=== PATIENT | male | born 1985 | race Two or more races ===

== ENCOUNTER 2018-06-19 07:56 | Emergency (ER) | payer MEDICAID ==
[~2018-06-19] VITALS: Ht 180.3 cm; Wt 72.6 kg
[~2018-06-19 07:56] MED LIST: BACTRIM-DS1 EA ORAL; CEPHALEXIN500 MG ORAL; HYDROCODON-ACE1 EAC4 ORAL; IBUPROFEN600 MG ORAL; NKM; VALIUM10 MG ORAL
[2018-06-19 08:15] VITALS: BP 119/68
--- NOTE | 2018-06-19 08:21 | Emergency Room Report ---
History of Present Illness General Chief Complaint: Skin Rash/Abscess Source: Patient, Medical Record Present Illness HPI This patient states that he has been showering in a community shower in an apartment building. He states that he has noticed skin changes between his toes of his left foot. He states that the area seems to be getting worse. He denies fever or chills. He denies nausea or vomiting. He denies foot swelling or redness. He has no other complaints. Allergies: Coded Allergies: No Known Allergies (Unverified , 08/03/13) Patient History Past Medical History: none Reviewed Nursing Documentation: PMH: Agreed; PSxH: Agreed Nursing Documentation-PM Past Medical History: No Stated History Hx Cardiac Problems: Yes Review of Systems All Other Systems: negative except mentioned in HPI Physical Exam Vital Signs Date Time Temp Pulse Resp B/P (MAP) Pulse Ox O2 Delivery O2 Flow Rate FiO2 06/19/18 07:58 97.8 105 18 119/68 99 Room Air 97.9 Sp02 EP Interpretation: reviewed, normal General Appearance: no apparent distress, alert, GCS 15, non-toxic Head: normocephalic, atraumatic Eyes: bilateral eye normal inspection ENT: hearing grossly normal, normal pharynx, no angioedema, normal voice Neck: full range of motion Respiratory: no respiratory distress, no retraction, no accessory muscle use, speaking full sentences Rectal: deferred Musculoskeletal: gait/station normal, normal range of motion Neurologic: alert, oriented x3, responsive, motor strength/tone normal, sensory intact, speech normal Psychiatric: judgement/insight normal, memory normal, mood/affect normal, no suicidal/homicidal ideation Skin: warm/dry, well hydrated, other - Macerated, moist skin between toes of the L. foot. Medical Decision Making Diagnostic Impression: Primary Impression: Tinea pedis ER Course This patient has a physical exam findings consistent with tinea pedis. I do not suspect cellulitis or other systemic infection. Otherwise, the patient's well appearing and exam is benign. I will start the patient on topical antifungal creams and powders. The patient instructed to follow-up with his primary care physician for further management and monitoring. The patient is given close return precautions and follow-up instructions. Last Vital Signs Date Time Temp Pulse Resp B/P (MAP) Pulse Ox O2 Delivery O2 Flow Rate FiO2 06/19/18 07:58 97.8 105 18 119/68 99 Room Air 97.9 Disposition: HOME, SELF-CARE Condition: Improved Kamilla Garcia DO Jun 19, 2018 08:21
[2018-06-19] MEDS ORDERED: LAMISIL15 GM TOPIC (08:23)
[2018-06-19] MEDS ORDERED: LAMISIL AF133 GM TP (08:23)
[2018-06-19 08:51] VITALS: BP 119/68
== END 2018-06-19 08:52 | disposition home or self-care (01) ==
LOC: EMR 08:25
DX: B35.3 Tinea pedis (principal)
CPT/HCPCS: 99282

== ENCOUNTER 2018-07-15 23:42 | Emergency (ER) | payer MEDICAID ==
[~2018-07-15] VITALS: Ht 180.3 cm; Wt 79.4 kg
[~2018-07-15 23:42] MED LIST changes: +LAMISIL AF133 GM TP; +LAMISIL15 GM TOPIC
[2018-08-02] MEDS ORDERED: BACITRACIN ZIN1 EACH TOPIC (00:20)
[2018-08-02 00:25] VITALS: BP 131/71
[2018-08-02 00:30] VITALS: BP 131/71
[2018-08-02] MEDS ORDERED: Bacitracin Oint UD TOPIC ONE (00:30)
--- NOTE | 2018-08-02 03:45 | Emergency Room Report ---
History of Present Illness General Chief Complaint: Skin Rash/Abscess Source: Patient Present Illness HPI Patient is a 33-year-old male who presented after a left hand injury. Patient reports having injured his hand at work. 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 He is right-hand dominant. The patient denies any severe pain. He states that he has recent tetanus vaccine. Allergies: Coded Allergies: No Known Allergies (Unverified , 08/03/13) Patient History Past Medical History: see triage record Reviewed Nursing Documentation: PMH: Agreed; PSxH: Agreed Nursing Documentation-PMH Past Medical History: No Stated History Hx Cardiac Problems: Yes Review of Systems All Other Systems: negative except mentioned in HPI Physical Exam Vital Signs Date Time Temp Pulse Resp B/P (MAP) Pulse Ox O2 Delivery O2 Flow Rate FiO2 08/02/18 00:09 97.9 108 16 133/71 99 Room Air 97.9 General Appearance: well appearing, no apparent distress, alert, GCS 15 Head: normocephalic, atraumatic ENT: hearing grossly normal, normal voice Neck: full range of motion, supple Respiratory: no respiratory distress, speaking full sentences Musculoskeletal: other Neurologic: normal inspection, alert, oriented x3, normal gait Psychiatric: mood/affect normal Skin: no rash, other - superficial laceration to hand 1cm old no erythema Medical Decision Making Diagnostic Impression: Primary Impression: Laceration ER Course Patient presented for wound check. Differential diagnosis included was not limited to infected wound, nonhealed wound, neuroma, healed wound. Patient has a benign exam and does not appear to require any further imaging or laboratory testing at this time. The patient's laceration does not appear to be infected. The patient presented several days after injury and wound is not amenable to suturing.The patient is advised to follow up with primary care doctor in 1-2 days. Patient is advised to return if any worsening condition or if any changes in status that are concerning. This report is dictated with [employer] technician software which may occasionally lead to discrepancies related to use of this software. Last Vital Signs Date Time Temp Pulse Resp B/P (MAP) Pulse Ox O2 Delivery O2 Flow Rate FiO2 08/02/18 00:30 97.9 78 18 131/71 99 Room Air 97.9 Status: improved Disposition: HOME, SELF-CARE Condition: Stable Scripts Bacitracin Zinc* (BACITRACIN ZINC*) 1 Each Packet 1 APPLIC TOPIC THREE TIMES A DAY, #20 PACKET Prov: Andrew Jeong MD 08/02/18 Referrals: NOT CHOSEN [facility]/MD,REFERRING (PCP) Patient Instructions: Nonsutured Laceration Care Andrew Jeong MD Aug 02, 2018 03:45
== END 2018-08-02 01:00 | disposition home or self-care (01) ==
LOC: EMR 08-02 00:31
DX: Z48.00 Encounter for change or removal of nonsurgical wound dressing (principal)
CPT/HCPCS: 99283; Z7502